=== PATIENT | female | born 1960 | race Two or more races ===

== ENCOUNTER 2019-12-17 06:27 | Emergency (ER) | payer OTHER ==
[~2019-12-17] VITALS: Ht 157.5 cm; Wt 65.8 kg
[~2019-12-17 06:27] MED LIST: MOTRIN800 MG PO
[2019-12-17] MEDS ORDERED: JARDIANCE25 MG (07:02)
[2019-12-17] MEDS ORDERED: LANTUS SOL100 UNIT/1 (07:02)
== END 2019-12-17 07:46 | disposition home or self-care (01) ==
LOC: ER 06:27
DX: S01.82XA Laceration with foreign body of other part of head, initial encounter (principal); W45.8XXA Other foreign body or object entering through skin, initial encounter; Y93.89 Activity, other specified; Y92.89 Other specified places as the place of occurrence of the external cause; Y99.8 Other external cause status

== ENCOUNTER 2019-12-23 06:23 | Emergency (ER) | payer OTHER ==
[~2019-12-23] VITALS: Ht 157.5 cm; Wt 65.8 kg
[~2019-12-23 06:23] MED LIST changes: +JARDIANCE25 MG; +LANTUS SOL100 UNIT/1
== END 2019-12-23 09:07 | disposition home or self-care (01) ==
LOC: ER 06:23
DX: Z48.02 Encounter for removal of sutures (principal)